=== PATIENT | female | born 1955 ===

== ENCOUNTER 2017-10-06 15:48 | Emergency (ER) | payer OTHER ==
[~2017-10-06] VITALS: Ht 157.5 cm; Wt 83.9 kg
[~2017-10-06 15:48] MED LIST: CELEBREX50 MG; COREG CR20 MG
== END 2017-10-06 20:16 | disposition home or self-care (01) ==
LOC: ER 15:48
DX: R42 Dizziness and giddiness (principal); H81.11 Benign paroxysmal vertigo, right ear

== ENCOUNTER 2019-07-07 08:05 | Outpatient (CLI) | payer OTHER | END 2019-07-07 08:15 | disposition home or self-care (01) | LOC: SONOGRAMA 08:05 → MAMO-SONO 08:45 | DX: R07.89 Other chest pain (principal) ==

== ENCOUNTER 2022-04-25 09:06 | Outpatient (CLI) | payer OTHER | END 2022-04-25 09:08 | disposition home or self-care (01) | LOC: SONOGRAMA 09:06 | PROVIDERS: ATTEND Pathology Anatomic Pathology | DX: D34 Benign neoplasm of thyroid gland (principal); E04.9 Nontoxic goiter, unspecified; E03.9 Hypothyroidism, unspecified ==